=== PATIENT | female | born 1975 | race Two or more races ===

== ENCOUNTER 2018-07-01 08:51 | Outpatient (CLI) | payer OTHER ==
[~2018-07-01 08:51] MED LIST: ALLEGRA ALLERG180 MG PO; CIPRO500 MG PO; GILTUSS TR TAB1 EACH PO; INTESTINEX1 CA1 PO; METRONIDAZOLE500 MG PO; OSEL75CA PO; PRILOSEC20 MG PO; TESSALON PERLE100 MG PO; ZITHROMAX TRI-500 MG PO
== END 2018-07-01 08:54 | disposition home or self-care (01) ==
LOC: MAMO-SONO 08:51
DX: N60.11 Diffuse cystic mastopathy of right breast (principal); Z12.31 Encounter for screening mammogram for malignant neoplasm of breast

== ENCOUNTER 2018-07-01 09:15 | Outpatient (CLI) | payer OTHER | END 2018-07-01 09:32 | disposition home or self-care (01) | LOC: LAB 09:15 | DX: N91.1 Secondary amenorrhea (principal) ==

== ENCOUNTER 2018-09-02 07:50 | Day surgery (SDC) | payer OTHER | END 2018-09-02 16:45 | disposition home or self-care (01) | LOC: CIR.AMB 07:50 | DX: D25.0 Submucous leiomyoma of uterus (principal) ==

== ENCOUNTER 2018-12-09 11:08 | Emergency (ER) | payer OTHER ==
[~2018-12-09] VITALS: Ht 157.5 cm; Wt 53.1 kg
[2018-12-09] MEDS ORDERED: CIPRO500 MG PO (11:20)
[2018-12-09] MEDS ORDERED: FLAGYL500MG PO (11:21)
[2018-12-09] MEDS ORDERED: ULTRACET PO (15:14)
== END 2018-12-09 15:56 | disposition home or self-care (01) ==
LOC: ER 11:08
DX: K57.92 Diverticulitis of intestine, part unspecified, without perforation or abscess without bleeding (principal); R10.32 Left lower quadrant pain

== ENCOUNTER 2019-09-06 15:23 | Inpatient (IN) | payer OTHER ==
[~2019-09-06] VITALS: Ht 160 cm; Wt 56.7 kg
[~2019-09-06 15:23] MED LIST changes: +FLAGYL500MG PO; +ULTRACET PO
== END 2019-10-02 09:30 | disposition home or self-care (01) | DRG 743 ==
LOC: SURG 09-24 07:15 → EDSTATUS 09-24 07:15 → CIR.AMB 09-24 07:15 → SURH 09-29 07:15 → O/R 09-29 07:56 → OB/GYN 09-29 07:56 → SURH 09-29 09:15 → OB/GYN 09-29 12:45
PROVIDERS: ADMIT Obstetrics & Gynecology
PROC: 0UB70ZZ Excision of Bilateral Fallopian Tubes, Open Approach (ICD-10-PCS; 2019-09-29)
PROC: 0UT90ZL Resection of Uterus, Supracervical, Open Approach (ICD-10-PCS; principal; 2019-09-29 09:15)
DX: D25.1 Intramural leiomyoma of uterus (principal); D25.0 Submucous leiomyoma of uterus; D25.2 Subserosal leiomyoma of uterus

== ENCOUNTER 2021-01-30 08:04 | Outpatient (CLI) | payer OTHER | END 2021-01-30 08:29 | disposition home or self-care (01) | LOC: MAMO-SONO 08:04 | PROVIDERS: ATTEND Obstetrics & Gynecology | DX: N60.11 Diffuse cystic mastopathy of right breast (principal) ==

== ENCOUNTER 2021-02-22 11:31 | Outpatient (CLI) | payer OTHER | END 2021-02-22 14:28 | disposition home or self-care (01) | LOC: RAD 11:31 | PROVIDERS: ATTEND Internal Medicine | DX: R07.89 Other chest pain (principal) ==

== ENCOUNTER 2021-02-23 16:39 | Emergency (ER) | payer OTHER ==
[~2021-02-23] VITALS: Ht 160 cm; Wt 56.7 kg
== END 2021-02-23 22:28 | disposition home or self-care (01) ==
LOC: ER 16:39
DX: K57.92 Diverticulitis of intestine, part unspecified, without perforation or abscess without bleeding (principal)

== ENCOUNTER 2021-04-12 12:00 | Inpatient (IN) | payer OTHER ==
[~2021-04-12] VITALS: Ht 157.5 cm; Wt 56.7 kg
== END 2021-04-20 17:00 | disposition home or self-care (01) | DRG 331 ==
LOC: O/R 04-17 06:28 → SURH 04-17 10:30 → SURG 04-17 12:19
PROVIDERS: ADMIT Colon & Rectal Surgery; ATTEND Colon & Rectal Surgery
PROC: 0DTN4ZZ Resection of Sigmoid Colon, Percutaneous Endoscopic Approach (ICD-10-PCS; 2021-04-17)
PROC: 0DJD8ZZ Inspection of Lower Intestinal Tract, Via Natural or Artificial Opening Endoscopic (ICD-10-PCS; 2021-04-17)
PROC: 3E0F7SF Introduction of Other Gas into Respiratory Tract, Via Natural or Artificial Opening (ICD-10-PCS; 2021-04-17)
PROC: 0DTP4ZZ Resection of Rectum, Percutaneous Endoscopic Approach (ICD-10-PCS; principal; 2021-04-17 10:30)
DX: K57.32 Diverticulitis of large intestine without perforation or abscess without bleeding (principal); F17.200 Nicotine dependence, unspecified, uncomplicated; Z20.822 Contact with and (suspected) exposure to COVID-19